=== PATIENT | female | born 1930 | race Caucasian/White ===

== ENCOUNTER 2016-03-21 18:14 | Inpatient (IN) | payer OTHER, MEDICARE ==
[~2016-03-21] VITALS: Ht 160 cm; Wt 51.0 kg
[~2016-03-21 18:14] MED LIST: TYLE3 PO; ZOCO40TA PO
[2016-03-21 18:22] VITALS: BP 126/58; PULSE 93; RESP 18; TEMP 98.1; O2SAT 99
[2016-03-21] MEDS ORDERED: ZOCO40TA PO (18:27)
--- NOTE | 2016-03-21 18:42 | PD ---
HPI . Weakness Chief Complaint: General Weakness Time Seen by Provider: 18:32 Travel History International Travel<30 days: No Contact w/Intl Traveler<30days: No Traveled to known affect area: No History of Present Illness HPI This patient is brought in via [facility] at the request of our department. Reportedly, the patient's neighbor tried to check on her today but did not get an answer. The neighbor subsequently contacted the fire department and requested a well-being check. The fire department went to check on her and she informed them that she had been fatigued since her in November. She keeps stating that "my mind is going". She has no other specific complaints. She admits to occasional headache which is not unusual for her. She denies chest pain or shortness of breath. She denies vomiting or diarrhea. She denies urinary tract symptoms. She denies any trauma. PFSH Past Medical History Cancer: Yes (L LUMPECTOMY "CANCER"-ON TAMOXIFEN X 5 YRS-RADIATION 1999) High Cholesterol: Yes Hypertension: Yes Radiation Therapy: Yes (1999-L LUMPECTOMY) Influenza Vaccination: Yes Menopausal: Yes Past Surgical History Mastectomy: Yes (LEFT LUMPECTOMY AND NODE REMOVAL, RADIATION) Other Surgery: Yes (L LUMPECTOMY "CANCER") Social History Alcohol Use: No Tobacco Use: No Substance Use: No Allergies-Medications (Allergen,Severity, Reaction): Coded Allergies: No Known Allergies (Verified , 03/21/16) Reported Meds & Prescriptions Reported Meds & Active Scripts Active Reported Zocor (Simvastatin) 40 Mg Tab 40 Mg PO HS Review of Systems Except as stated in HPI: all other systems reviewed are Neg General / Constitutional: No: Fever, Chills, Weight Loss Eyes: No: Blurred Vision HENT: Positive: Headaches, No: Lightheadedness, Sore Throat, Rhinitis, Rhinorrhea, Congestion Cardiovascular: No: Chest Pain or Discomfort Respiratory: No: Cough, Shortness of Breath Gastrointestinal: No: Nausea, Vomiting, Diarrhea, Abdominal Pain, Loss of Appetite Genitourinary: No: Urgency, Frequency, Dysuria Musculoskeletal: Positive: Weakness, No: Myalgias, Arthralgias, Pain Neurologic: Positive: Weakness, Change in Mentation (she states that "my memory is going."), No: Dizziness, Syncope, Focal Abnormalities Physical Exam Narrative GENERAL: This is a thin elderly woman who seems to become intermittently frustrated because she is unable to answer our questions. SKIN: Warm and dry. HEAD: Atraumatic. Normocephalic. EYES: Pupils equal and round. Extraocular movements are intact. ENT: No nasal bleeding or discharge. Mucous membranes pink and moist. NECK: Trachea midline. Neck is supple. There is no cervical lymphadenopathy. CARDIOVASCULAR: Regular rate and rhythm. Heart sounds are normal. RESPIRATORY: No accessory muscle use. Lungs are clear with full air movement throughout. GASTROINTESTINAL: Abdomen soft, non-tender, nondistended. MUSCULOSKELETAL: No obvious deformities. No edema. NEUROLOGICAL: Awake and alert. She knows her name and where she is. When prompted, she recalls that we've just celebrated Glennie and 's. No obvious cranial nerve deficits. Motor grossly within normal limits. Normal speech. PSYCHIATRIC: Appropriate mood and affect. Frustrated by her memory. Data Data Last Documented VS Vital Signs Date Time Temp Pulse Resp B/P Pulse Ox O2 Delivery O2 Flow Rate FiO2 03/21/16 18:22 98.1 93 18 126/58 99 MDM Medical Decision Making Medical Screen Exam Complete: Yes Emergency Medical Condition: Yes Differential Diagnosis Differential diagnosis of weakness includes but is not limited to infection, CVA , electrolyte disturbance, renal failure, hypoglycemia, UTI, ACS Narrative Course This patient presents basically with failure to thrive since her in November. I have ordered labs and a CT of her head. Her care will be checked out to the oncoming physician. Franci Jeter MD Mar 21, 2016 18:42
[2016-03-21] MEDS ORDERED: SODIUM CHLORIDE 0.9% FLUSH 5 ML FLUSH IVF PRN (18:45)
--- NOTE | 2016-03-21 19:05 | RADRPT ---
EXAM DATE/TIME: 03/21/2016 18:46 [facility] COMPARISON: No previous studies available for comparison. INDICATIONS : Syncope. MEDICAL HISTORY : None. SURGICAL HISTORY : None. ENCOUNTER: Initial ACUITY: 1 day PAIN SCORE: 0/10 LOCATION: Bilateral chest FINDINGS: A single view of the chest demonstrates the lungs to be symmetrically aerated without evidence of mas s, infiltrate or effusion. The cardiomediastinal contours are unremarkable. Osseous structures are intact. Left axillary and breast surgical clips noted. CONCLUSION: No evidence of acute cardiopulmonary disease. Carlos A Babcock MD on March 21, 2016 at 19:03 Board Certified Radiologist. This report was verified electronically.
--- NOTE | 2016-03-21 19:14 | PD ---
Physical Exam Narrative General: The patient is a well-developed well-nourished female in no acute distress. Head and Neck exam: Head is normocephalic atraumatic. Eyes: EOMI, pupils are equal round and reactive to light. Nose: Midline septum with pink mucous membranes Mouth: Dentition unremarkable. Moist mucus membranes. Posterior oropharynx is not erythematous. No tonsillar hypertrophy. Uvula midline. Airway patent. Neck: No palpable lymphadenopathy. No nuchal rigidity. No thyromegaly. Cardiovascular: Regular rate and rhythm without murmurs, gallops, or rubs. Lungs: Clear to auscultation bilaterally. No wheezes, rhonchi, or rales. Abdomen: Soft, without tenderness to palpation in all 4 quadrants of the abdomen. No guarding, rebound, or rigidity. Normal bowel sounds are audible. Extremities: No clubbing, cyanosis, or edema. 1+ pulses in bilateral lower extremities, 2+ pulses in bilateral upper extremities. Back: No spinous process tenderness to palpation. No costovertebral angle tenderness to palpation. Neurologic Exam: Cranial nerves 2-12 were intact on exam. Strength is 5/5 in all 4 extremities. No sensory deficits noted. The patient is oriented to person and place, however she has difficulty recalling timeframes and situation. She reports that she is unsure why she called ambulance services, however on further questioning she then recalls that her neighbor called when they were not able to get her to answer the door. Skin Exam: No rash noted. Intact skin that is warm and dry. Data Data Last Documented VS Vital Signs Date Time Temp Pulse Resp B/P Pulse Ox O2 Delivery O2 Flow Rate FiO2 03/21/16 22:29 90 15 118/58 96 Room Air 03/21/16 18:22 98.1 Orders Electrocardiogram (03/21/16 18:32) Complete Blood Count With Diff (03/21/16 18:32) Comprehensive Metabolic Panel (03/21/16 18:32) Troponin I (03/21/16 18:32) Thyroid Stimulating Hormone (03/21/16 18:32) Urinalysis - C+S If Indicated (03/21/16 18:32) Chest, Single Ap (03/21/16 18:32) Ct Brain W/O Iv Contrast(Rout) (03/21/16 18:32) Blood Glucose (03/21/16 18:32) Ecg Monitoring (03/21/16 18:32) Iv Access Insert/Monitor (03/21/16 18:32) Oximetry (03/21/16 18:32) Sodium Chloride 0.9% Flush (Ns Flush) (03/21/16 18:45) Cath For Specimen (03/21/16 20:28) Sodium Chlorid 0.9% 500 Ml Inj (Ns 500 M (03/21/16 20:30) Ondansetron Inj (Zofran Inj) (03/21/16 20:30) Urine Culture (03/21/16 21:15) Ceftriaxone Inj (Rocephin Inj) (03/21/16 22:15) Admit Order (Ed Use Only) (03/21/16 22:42) Labs Laboratory Tests Test 03/21/16 03/21/16 19:00 21:15 White Blood Count 14.6 TH/MM3 Red Blood Count 4.95 MIL/MM3 Hemoglobin 15.1 GM/DL Hematocrit 44.3 % Mean Corpuscular Volume 89.6 FL Mean Corpuscular Hemoglobin 30.5 PG Mean Corpuscular Hemoglobin 34.1 % Concent Red Cell Distribution Width 14.2 % Platelet Count 334 TH/MM3 Mean Platelet Volume 8.5 FL Neutrophils (%) (Auto) 88.8 % Lymphocytes (%) (Auto) 7.6 % Monocytes (%) (Auto) 3.1 % Eosinophils (%) (Auto) 0.2 % Basophils (%) (Auto) 0.3 % Neutrophils # (Auto) 13.0 TH/MM3 Lymphocytes # (Auto) 1.1 TH/MM3 Monocytes # (Auto) 0.5 TH/MM3 Eosinophils # (Auto) 0.0 TH/MM3 Basophils # (Auto) 0.0 TH/MM3 CBC Comment DIFF FINAL Differential Comment Sodium Level 140 MEQ/L Potassium Level 4.2 MEQ/L Chloride Level 106 MEQ/L Carbon Dioxide Level 22.9 MEQ/L Anion Gap 11 MEQ/L Blood Urea Nitrogen 12 MG/DL Creatinine 1.23 MG/DL Estimat Glomerular Filtration 41 ML/MIN Rate Random Glucose 150 MG/DL Calcium Level 8.9 MG/DL Total Bilirubin 0.7 MG/DL Aspartate Amino Transf 27 U/L (AST/SGOT) Alanine Aminotransferase 21 U/L (ALT/SGPT) Alkaline Phosphatase 96 U/L Troponin I LESS THAN 0.02 NG/ML Total Protein 7.2 GM/DL Albumin 3.3 GM/DL Thyroid Stimulating Hormone 2.380 uIU/ML 3rd Gen Urine Color DARK-YELLOW Urine Turbidity HAZY Urine pH 5.5 Urine Specific [place] 1.025 Urine Protein 100 mg/dL Urine Glucose (UA) TRACE mg/dL Urine Ketones NEG mg/dL Urine Occult Blood NEG Urine Nitrite NEG Urine Bilirubin NEG Urine Urobilinogen 2.0 MG/DL Urine Leukocyte Esterase NEG Urine RBC 1 /hpf Urine WBC 3 /hpf Urine Squamous Epithelial 1 /hpf Cells Urine Bacteria FEW /hpf Urine Hyaline Casts 14 /lpf Urine Mucus FEW /lpf Urine Yeast (Budding) OCC Microscopic Urinalysis Comment CATH-CULTURE IND MDM Medical Record Reviewed: Yes Supervised Visit with SUPRIYA: No Interpretation(s) Last Impressions Head CT 03/21/161831 Signed Impressions: Service Date/Time: Monday, March 21, 2016 19:16 - CONCLUSION: Negative noncontrast head CT. Carlos A Babcock MD Chest X-Ray 03/21/161831 Signed Impressions: Service Date/Time: Monday, March 21, 2016 18:46 - CONCLUSION: No evidence of acute cardiopulmonary disease. Carlos A Babcock MD Narrative Course During the course of the patients emergency department visit, the patients history, examination, and differential diagnosis were reviewed with the patient. The patient had IV access obtained and blood work sent for analysis. The patient's case was checked out to me by Dr. Jeter who requested that I review the patient's laboratory and imaging studies and disposition the patient. As the patient came in with generalized weakness and altered mentation that lives at home alone, she recommended that the patient be admitted for continued evaluation and treatment. The patient's EKG is remarkable for being a sinus rhythm with occasional premature supraventricular contractions, no ST segment elevation is noted. Nonspecific T-wave abnormalities are noted, heart rate of 88. The patient has a reported history of memory problems for the last several months. She reports that it is gotten much worse since her in November. She reports that she was for 58 years. She reports that she has no local family and lives alone. Her closest family member is a sister that lives in [place], [place]. She reports that she has discussed with her primary care physician her memory problems, however she denies any specific workup being done previously to evaluate this. The patient was provided normal saline a 500 mL bolus 1, Zofran 4 mg IV times one for nausea. The patients laboratory studies were reviewed and remarkable for a white count of 14.6, hemoglobin 15.1, platelets 334 with 88.8 neutrophils, lymphocytes 7.6, CMP is remarkable for creatinine of 1.23, glucose 150, troponin I less than 0.02 , albumin 3.3, TSH 2.38, catheterized urine shows 100 protein few bacteria few mucus occasional yeast culture indicated. Radiology studies were reviewed and remarkable for a chest x-ray that shows no acute abnormality. The patients results were discussed with the patient, including the plan of care. I explained that further testing and/ or monitoring is indicated based on the patients history, examination, and/ or laboratory findings. Therefore, I recommended admission for additional evaluation. The patient expressed understanding and was agreeable with this plan. The patient was admitted to the hospital in stable condition and sent to a bed under the care of the [facility] service. PCP Dr. Singh, Cici patient, the patient's case was discussed with Dr. Singh. He reports that his [facility] patients are admitted by the [facility] service. A call was placed out to the [facility] service for admission. Physician Communication Physician Communication The patient's case was discussed with Dr. Singh who reports that his [facility] patients are admitted to the [facility] service. The patient's case will be discussed with Dr. Brown. The patient's case was discussed with Dr. Brown and she did agree to admit the patient for further evaluation and treatment at this time Diagnosis Primary Impression: Generalized weakness Additional Impression: Bacteriuria Admitting Information Admitting Physician Requests: Observation Liseth Fonseca MD Mar 21, 2016 19:14
[2016-03-21 19:24] LABS: BASOPHIL % 0.3 % (0.0-2.0); EOSINOPHIL % 0.2 % (0.0-4.0); HEMATOCRIT 44.3 % (35.0-46.0); HEMO FLAGS DIFF FINAL; LYMPH % 7.6 % (9.0-44.0); LYMPHOCYTE # 1.1 TH/MM3 (1.0-4.8); MEAN CELL VOLUME 89.6 FL (80.0-100.0); MEAN CORPUSCULAR HEMOGLOBIN 30.5 PG (27.0-34.0); MEAN CORPUSCULAR HGB CONC 34.1 % (32.0-36.0); MONO % 3.1 % (0.0-8.0); NEUT % 88.8 % (16.0-70.0); PLATELET COUNT 334 TH/MM3 (150-450); RED BLOOD COUNT 4.95 MIL/MM3 (4.00-5.30); RED CELL DISTRIBUTION WIDTH 14.2 % (11.6-17.2); WHITE BLOOD COUNT 14.6 TH/MM3 (4.0-11.0)
[2016-03-21 19:47] LABS: ANION GAP 11 MEQ/L (5-15); AST (GOT) 27 U/L (15-37); BICARBONATE 22.9 MEQ/L (21.0-32.0); BLOOD UREA NITROGEN 12 MG/DL (7-18); CHLORIDE 106 MEQ/L (98-107); GLOMERULAR FILTRATION RATE 41 ML/MIN (>89); POTASSIUM 4.2 MEQ/L (3.5-5.1); SODIUM (NA) 140 MEQ/L (136-145)
--- NOTE | 2016-03-21 19:48 | RADRPT ---
EXAM DATE/TIME: 03/21/2016 19:16 [facility] COMPARISON: No previous studies available for comparison. INDICATIONS : Altered mental status; patient states she gets episodes of confusion over the past few months. RADIATION DOSE: 28.46 CTDIvol (mGy) MEDICAL HISTORY : Carcinoma, breast. Hypertension. SURGICAL HISTORY : None. ENCOUNTER: Initial ACUITY: 3 months PAIN SCALE: 0/10 LOCATION: cranial TECHNIQUE: Multiple contiguous axial images were obtained of the head. Using automated exposure control and adj ustment of the mA and/or kV according to patient size, radiation dose was kept as low as reasonably a chievable to obtain optimal diagnostic quality images. FINDINGS: CEREBRUM: The ventricles are normal for age. No evidence of midline shift, mass lesion, hemorrhage or acute in farction. No extra-axial fluid collections are seen. POSTERIOR FOSSA: The cerebellum and brainstem are intact. The 4th ventricle is midline. The cerebellopontine angle i s unremarkable. EXTRACRANIAL: The visualized portion of the orbits is intact. SKULL: The calvaria is intact. No evidence of skull fracture. CONCLUSION: Negative noncontrast head CT. Carlos A Babcock MD on March 21, 2016 at 19:46 Board Certified Radiologist. This report was verified electronically.
[2016-03-21 20:01] LABS: ALKALINE PHOSPHATASE 96 U/L (45-117); ALT (GPT) 21 U/L (10-53); TOTAL BILIRUBIN ADULT 0.7 MG/DL (0.2-1.0)
[2016-03-21] MEDS ORDERED: ONDANSETRON HCL 4 MG/2 ML VIAL IV ONE (20:30)
[2016-03-21] MEDS ORDERED: SODIUM CHLORID 0.9% 500 ML INJ 500 ML IV ONE (20:30)
[2016-03-21 21:41] LABS: BACTERIA, URINE FEW /hpf; BLOOD, URINE NEG (NEG); COMMENT (UR) CATH-CULTURE IND; CULTURE IF INDICATED CATH CULTURE IND; GLUCOSE,URINE TRACE mg/dL (NEG); HYALINE CAST, URINE 14 /lpf (RARE); KETONE, URINE NEG (NEG); MUCUS URINE FEW /lpf (OCC); NITRITE,URINE NEG (NEG); PH, URINE 5.5 (5.0-8.5); SQUAMOUS EPITHELIAL CELL URINE 1 /hpf (0-5); URINE COLOR DARK-YELLOW (YELLW/STRAW)
[2016-03-21] MEDS ORDERED: cefTRIAXone INJ 1,000 MG in SODIUM CHLORIDE 0.9% INJ 100 ML IV ONE (22:15)
[2016-03-21 22:29] VITALS: BP 118/58; PULSE 90; RESP 15; O2SAT 96
[2016-03-21] MEDS: SODIUM CHLOR 0.9% 1000 ML INJ 1,000 ML IV SCH (22:53)
--- NOTE | 2016-03-21 22:57 | HHI.HP ---
[facility] Mey Singh MD Admission Diagnosis Generalized weakness, Bactiuria Diagnoses: (1) Generalized weakness Diagnosis: Principal (2) Renal insufficiency Diagnosis: Principal (3) UTI (urinary tract infection) Diagnosis: Principal Travel History International Travel<30 Days: No Contact w/Intl Traveler <30 Da: No Traveled to Known Affected Are: No History of Present Illness This is an 86-year-old female with a PMH of HTN, Hyperlipidemia and Breast CA was brought to the ER by EMS secondary to weakness and unable to care for self. Per report, neighbors check on her regularly and noted her to be weaker than usual, unable to get her up. Of note, pt's recently in November and neighbors report steady decline in her condition. Patient without any complaints. On arrival, BP 126/58, HR 93, O2 sat 99% on RA, Afebrile. WBC 14.6. Creatinine 1.23, previously 0.67 on 05/05/10. UA with bacteriuria. S/p Rocephin IV. CT Head w/ no acute findings. CXR negative. Review of Systems Other ROS: 14 point review of systems otherwise negative. Past Family Social History Past Medical History PMH: HTN, Hyperlipidemia and Breast CA Past Surgical History PAST SURGICAL HISTORY: Left Lumpectomy Allergies: Coded Allergies: No Known Allergies (Verified , 03/21/16) Family History PAST FAMILY HISTORY: Reviewed. No h/o DM or CAD Social History PAST SOCIAL HISTORY: Negative for alcohol, tobacco or drugs. Physical Exam Vital Signs Vital Signs Date Time Temp Pulse Resp B/P Pulse Ox O2 Delivery O2 Flow Rate FiO2 03/21/16 22:29 90 15 118/58 96 Room Air 03/21/16 18:22 98.1 93 18 126/58 99 Physical Exam PE: GENERAL: Elderly female in no acute distress. HEENT: PERRLA, EOMI. No scleral icterus or conjunctival pallor. No lid lag or facial droop. CARDIOVASCULAR: Regular rate and rhythm. No obvious murmurs to auscultation. No chest tenderness to palpation. RESPIRATORY: No obvious rhonchi or wheezing. Clear to auscultation. Breath sounds equal bilaterally. GASTROINTESTINAL: Abdomen soft, non-tender, nondistended. BS normal. MUSCULOSKELETAL: Extremities without clubbing, cyanosis, or edema. No obvious deformities. NEUROLOGICAL: Awake, alert and oriented to person/place. No focal neurologic deficits. Moving both upper and lower extremities spontaneously. Laboratory Laboratory Tests Test 03/21/16 03/21/16 19:00 21:15 White Blood Count 14.6 Red Blood Count 4.95 Hemoglobin 15.1 Hematocrit 44.3 Mean Corpuscular Volume 89.6 Mean Corpuscular Hemoglobin 30.5 Mean Corpuscular Hemoglobin 34.1 Concent Red Cell Distribution Width 14.2 Platelet Count 334 Mean Platelet Volume 8.5 Neutrophils (%) (Auto) 88.8 Lymphocytes (%) (Auto) 7.6 Monocytes (%) (Auto) 3.1 Eosinophils (%) (Auto) 0.2 Basophils (%) (Auto) 0.3 Neutrophils # (Auto) 13.0 Lymphocytes # (Auto) 1.1 Monocytes # (Auto) 0.5 Eosinophils # (Auto) 0.0 Basophils # (Auto) 0.0 CBC Comment DIFF FINAL Differential Comment Sodium Level 140 Potassium Level 4.2 Chloride Level 106 Carbon Dioxide Level 22.9 Anion Gap 11 Blood Urea Nitrogen 12 Creatinine 1.23 Estimat Glomerular Filtration 41 Rate Random Glucose 150 Calcium Level 8.9 Total Bilirubin 0.7 Aspartate Amino Transf 27 (AST/SGOT) Alanine Aminotransferase 21 (ALT/SGPT) Alkaline Phosphatase 96 Troponin I LESS THAN 0.02 Total Protein 7.2 Albumin 3.3 Thyroid Stimulating Hormone 2.380 3rd Gen Urine Color DARK-YELLOW Urine Turbidity HAZY Urine pH 5.5 Urine Specific [place] 1.025 Urine Protein 100 Urine Glucose (UA) TRACE Urine Ketones NEG Urine Occult Blood NEG Urine Nitrite NEG Urine Bilirubin NEG Urine Urobilinogen 2.0 Urine Leukocyte Esterase NEG Urine RBC 1 Urine WBC 3 Urine Squamous Epithelial 1 Cells Urine Bacteria FEW Urine Hyaline Casts 14 Urine Mucus FEW Urine Yeast (Budding) OCC Microscopic Urinalysis Comment CATH-CULTURE IND Date/Time Procedure Status Source Growth 03/21/16 21:15 Urine Culture Received Urine Catheterized Urine Pending Result Diagram: 03/21/16189903/21/161899 Assessment and Plan Problem List: (1) Generalized weakness ICD Code: R53.1 Status: Acute (2) UTI (urinary tract infection) ICD Code: N39.0 Status: Acute (3) Renal insufficiency ICD Code: N28.9 Status: Acute Assessment and Plan A/P: 1. Generalized Weakness: secondary to physical deconditioning and compounded by UTI/Dehydration. IVF, PT for eval/tx. Case Management for assistance w/ placement as pt lives alone. CXR negative, CT Head w/ no acute findings, images reviewed by me. 2. UTI: U/a w/ bacteriuria. WBC 14.6. S/p IV Rocephin in ER, continue w/ IV Rocephin and IVF. 3. TRUNG: Creatinine 1.23, previously 0.67 on 04/25/10. IVF for hydration, repeat labs in am. 4. DVT Prophylaxis: SCD/Teds. 5. Social work for d/c planning as needed. 6. Case discussed w/ ER physician at length. Dora Brown MD Mar 21, 2016 22:57
[2016-03-21] MEDS ORDERED: SODIUM CHLORIDE 0.9% FLUSH 5 ML FLUSH FLUSH PRN (23:00)
[2016-03-21] MEDS ORDERED: ACETAMINOPHEN/HYDROcodone 325 MG/5 MG TAB PO PRN (23:00)
[2016-03-21] MEDS ORDERED: ONDANSETRON HCL 4 MG/2 ML VIAL IVP PRN (23:00)
[2016-03-21] MEDS ORDERED: BISACODYL 10 MG SUPP PR PRN (23:00)
[2016-03-21] MEDS ORDERED: ACETAMINOPHEN 325 MG TAB PO PRN (23:00)
[2016-03-22] VITALS (7 sets, daily range): BP systolic 104–151; BP diastolic 50–66; PULSE 79–93; RESP 12–20; TEMP 96.9–98.8; O2SAT 96–100
[2016-03-22 04:32] LABS: AUTOMATED NEUTROPHIL # 8.1 TH/MM3 (1.8-7.7); BASOPHIL % 0.1 % (0.0-2.0); EOSINOPHIL % 0.4 % (0.0-4.0); HEMATOCRIT 35.9 % (35.0-46.0); HEMO FLAGS DIFF FINAL; LYMPH % 15.1 % (9.0-44.0); LYMPHOCYTE # 1.6 TH/MM3 (1.0-4.8); MEAN CELL VOLUME 89.9 FL (80.0-100.0); MEAN CORPUSCULAR HEMOGLOBIN 30.8 PG (27.0-34.0); MEAN CORPUSCULAR HGB CONC 34.3 % (32.0-36.0); MONO % 8.3 % (0.0-8.0); NEUT % 76.1 % (16.0-70.0); PLATELET COUNT 274 TH/MM3 (150-450); RED BLOOD COUNT 3.99 MIL/MM3 (4.00-5.30); RED CELL DISTRIBUTION WIDTH 13.7 % (11.6-17.2); WHITE BLOOD COUNT 10.7 TH/MM3 (4.0-11.0)
[2016-03-22 05:11] LABS: ALKALINE PHOSPHATASE 88 U/L (45-117); ALT (GPT) 15 U/L (10-53); ANION GAP 10 MEQ/L (5-15); AST (GOT) 16 U/L (15-37); BICARBONATE 23.4 MEQ/L (21.0-32.0); BLOOD UREA NITROGEN 18 MG/DL (7-18); CHLORIDE 110 MEQ/L (98-107); GLOMERULAR FILTRATION RATE 33 ML/MIN (>89); POTASSIUM 4.2 MEQ/L (3.5-5.1); SODIUM (NA) 143 MEQ/L (136-145); TOTAL BILIRUBIN ADULT 0.3 MG/DL (0.2-1.0)
[2016-03-22] MEDS: SODIUM CHLORIDE 0.9% FLUSH 5 ML FLUSH FLUSH SCH ×2 (09:47→19:54)
[2016-03-22] MEDS: SODIUM CHLOR 0.9% 1000 ML INJ 1,000 ML IV SCH ×2 (09:48→23:46)
--- NOTE | 2016-03-22 10:28 | HHI.PR ---
Subjective Remarks Follow-up for FTT. The patient is to be confused and has a hard time remembering what brought her to the hospital. She states that she has a history of memory problems. She is not oriented to time. She does live alone since her a few months ago. She has a younger sister in [place]. She is not sure if she fell or not, denies any pain. He states that she has a history of getting lightheaded sometimes, but doesn't think she' s been lightheaded recently. She denies any nausea, vomiting, fever, chills, paresthesias, dysuria, positive patient. She states she is on medication for blood pressure and cholesterol at home. 1040 discussed with family at bedside. Reportedly the patient went to the hospital yesterday because she was having profuse diarrhea. Patient denies any further diarrhea overnight. They do stay the patient was started on donepezil recently and are wondering if that is contributing. Patient's mental status is currently at baseline. Currently they're transitioning the patient to be independent living near family in [place]. Objective Vitals Vital Signs Date Time Temp Pulse Resp B/P Pulse Ox O2 Delivery O2 Flow Rate FiO2 03/22/16 07:03 97.2 83 20 104/50 97 03/22/16 03:33 98.2 87 16 116/55 97 03/22/16 01:31 97.8 93 16 126/53 100 03/21/16 22:29 90 15 118/58 96 Room Air 03/21/16 18:22 98.1 93 18 126/58 99 I/O 03/21/16 03/21/16 03/21/16 03/22/16 03/22/16 03/22/16 07:00 15:00 23:00 07:00 15:00 23:00 Intake Total 566 ml Balance 566 ml Intake Oral 120 ml IV Total 446 ml Result Diagram: 03/22/16 0355 03/22/16 0355 Imaging Last Impressions Head CT 03/21/161831 Signed Impressions: Service Date/Time: Monday, March 21, 2016 19:16 - CONCLUSION: Negative noncontrast head CT. Carlos A Babcock MD Chest X-Ray 03/21/161831 Signed Impressions: Service Date/Time: Monday, March 21, 2016 18:46 - CONCLUSION: No evidence of acute cardiopulmonary disease. Carlos A Babcock MD Objective Remarks GENERAL: Well-developed well-nourished. In no acute distress. SKIN: Warm and dry. No lesions noted. HEENT: Normocephalic. Pupils equal and round. Mucous membranes pink and moist. CARDIOVASCULAR: Regular rate and rhythm. No murmur appreciated. RESPIRATORY: No accessory muscle use. Clear to auscultation. Breath sounds equal bilaterally. GASTROINTESTINAL: Abdomen soft, non-tender, nondistended. Bowel sounds x4. MUSCULOSKELETAL: No obvious deformities. No clubbing or cyanosis. No edema. NEUROLOGICAL: Awake and alert. Not oriented to time. No focal neurological deficits. Moves upper and lower extremities spontaneously. Normal speech. PSYCHIATRIC: Pleasantly confused mood and affect; insight and judgment fair to poor. A/P Problem List: (1) Generalized weakness ICD Code: R53.1 Status: Acute (2) UTI (urinary tract infection) ICD Code: N39.0 Status: Acute (3) Renal insufficiency ICD Code: N28.9 Status: Acute Assessment and Plan 86-year-old female with a PMH of HTN, Hyperlipidemia and Breast CA who is brought in by EMS reportedly after her neighbors called because she appeared weaker than normal Failure to thrive: Secondary to chronic memory loss with possible depression component as well. Also possibility of dehydration and UTI. PT consulted, recommends C, however the patient needs supervision at home. UTI: UA with evidence of possible infection. On IV Rocephin empirically pending urine culture. Acute kidney injury: Creatinine 1.23, previously 0.67 on 04/25/10. Secondary to recent diarrhea? Creatinine increased to 1.48 overnight while on IVF. Check renal ultrasound to rule out obstruction. Continue IVF and follow-up BMP. Chronic memory loss: Per patient. TSH within normal limits. Check B12 and RPR. Possible GI upset on Aricept. Start Namenda. DVT prophylaxis: SCDs Written by Uday Bui, acting as scribe for Dr. Mas on 03/22/16 at 10:20. Discharge Planning Case management consulted for assistance with discharge disposition. Attending Statement The documentation accurately reflects the work performed [id number] by me on at 10:20. Problem Qualifiers (1) UTI (urinary tract infection): Qualified Code: N39.0 - Urinary tract infection without hematuria, site unspecified Uday Bui Mar 22, 2016 10:28 Kranthi Mas MD Mar 23, 2016 11:30
[2016-03-22] MEDS ORDERED: LISI10TA3 PO (10:30)
[2016-03-22] MEDS: MEMANTINE HCL 5 MG TAB PO SCH (11:50)
--- NOTE | 2016-03-22 12:27 | RADRPT ---
EXAM DATE/TIME: 03/22/2016 11:14 [facility] COMPARISON: No previous studies available for comparison. INDICATIONS : Increased BUN/Creatine. MEDICAL HISTORY : Hypercholesterolemia. Hypertension. Left breast cancer. Depression. SURGICAL HISTORY : Left lumpectomy with removal of nodules. Right hip replacement. ENCOUNTER: Initial ACUITY: 1 day PAIN SCORE: 0/10 LOCATION: Bilateral flank MEASUREMENTS: RIGHT KIDNEY: 10.7 x 4.4 x 4.2 cm LEFT KIDNEY: 10.3 x 4.5 x 5.6 cm FINDINGS: RIGHT KIDNEY: Renal cortex is normal in thickness and increased in echotexture. No hydronephrosis, stone, or mass. LEFT KIDNEY: Renal cortex is normal in thickness and increased in echotexture. No hydronephrosis, stone, or mass. BLADDER: Within normal limits given the degree of distension. CONCLUSION: 1. Trace perinephric fluid on the right than small amount of free fluid in the right lower quadrant a nd midline pelvis. 2. Mild increased echotexture of the kidneys bilaterally. Gavin Vidal MD on March 22, 2016 at 12:24 Board Certified Radiologist. This report was verified electronically.
[2016-03-22 12:54] LABS: BICARBONATE 23.5 MEQ/L (21.0-32.0); POTASSIUM 3.8 MEQ/L (3.5-5.1)
[2016-03-22] MEDS ORDERED: ASPI325T PO (17:28)
[2016-03-22] MEDS ORDERED: NEOM0.1O4 LEFT EYE (17:28)
--- NOTE | 2016-03-22 18:26 | EKG ---
Date Performed: 03/21/2016 Time Performed: 18:57:26 PTAGE: 86 years EKG: Sinus rhythm WITH OCCASIONAL SUPRAVENTRICULAR PREMATURE COMPLEXES MODERATE T-WAVE ABNORMALITY, CONSIDER LATERAL I SCHEMIA Since previous tracing, no significant change noted ABNORMAL ECG PREVIOUS TRACING : 09/15/2009 11.04 DOCTOR: Linda Taveras Interpretating Date/Time 03/22/2016 18:24:31
[2016-03-22] MEDS ORDERED: cefTRIAXone INJ 1,000 MG in SODIUM CHLORIDE 0.9% INJ 100 ML IV SCH (23:00)
[2016-03-23] VITALS: BP 134/68; PULSE 78; RESP 20; TEMP 97.6; O2SAT 96
[2016-03-23 08:00] VITALS: BP 142/64; PULSE 76; RESP 18; TEMP 97.1; O2SAT 95
[2016-03-23] MEDS: MEMANTINE HCL 5 MG TAB PO SCH (10:24)
--- NOTE | 2016-03-23 11:41 | HHI.PR ---
Subjective Remarks Patient sitting up in chair at bedside.Patient says she feels great. No diarrhea. No chest pain or shortness of breath. No fevers or chills. No dysuria. She thinks she was dehydrated from the diarrhea. Daughter is at bedside, says patient is back to baseline, is comfortable with taking her home. They plan to move up to [place] soon to be near family. Daughter thinks that diarrhea may be secondary to starting donepezil recently. Objective Vital Signs Date Time Temp Pulse Resp B/P Pulse Ox O2 Delivery O2 Flow Rate FiO2 03/23/16 08:00 97.1 76 18 142/64 95 03/23/16 00:00 97.6 78 20 134/68 96 03/22/16 20:00 98.8 80 20 132/63 97 03/22/16 16:59 96.9 91 17 151/66 98 03/22/16 16:00 98.0 79 20 128/61 96 03/22/16 13:30 97.9 86 12 133/61 99 I/O 03/22/16 03/22/16 03/22/16 03/23/16 03/23/16 03/23/16 07:00 15:00 23:00 07:00 15:00 23:00 Intake Total 566 ml 480 ml 220 ml 876 ml Output Total 550 ml 500 ml Balance 566 ml -70 ml -280 ml 876 ml Intake Oral 120 ml 480 ml 220 ml IV Total 446 ml 876 ml Output Urine Total 550 ml 500 ml # Bowel Movements 0 0 Result Diagram: 03/22/16 0355 03/22/16 1200 Objective Remarks GENERAL: Patient sitting up in chair at bedside. Appears comfortable. Smiling. She is alert, oriented to location, not to year. Daughter says this is baseline. SKIN: Warm and dry. HEAD: Normocephalic. EYES: No scleral icterus. No injection or drainage. NECK: Supple, trachea midline. No JVD. CARDIOVASCULAR: Regular rate and rhythm without murmurs, gallops, or rubs. RESPIRATORY: Breath sounds equal bilaterally. No accessory muscle use. GASTROINTESTINAL: Abdomen soft, non-tender, nondistended. Positive bowel sounds. MUSCULOSKELETAL: No cyanosis, or edema. BACK: Nontender without obvious deformity. No CVA tenderness. A/P Assessment and Plan 86-year-old female with a PMH of HTN, Hyperlipidemia and Breast CA who is brought in by EMS reportedly after her neighbors called because she appeared weaker than normal. //Failure to thrive: Secondary to chronic memory loss with possible depression component as well. Also possibility of dehydration and UTI. PT consulted, recommends [facility], however the patient needs supervision at home. Daughter assures us that patient will be supervised. //Recent bout of diarrhea. Possibly secondary to donepezil versus infectious diarrhea. Appears to have resolved with no more episodes of diarrhea. -We will give course of antibiotics for colitis, as patient did improve on ceftriaxone here. Start on florastor. //Renal ultrasound with finding trace ascites. This could be secondary to recent infectious colitis. LFTs normal. Follow-up with primary care. //Possible UTI: UA with evidence of possible infection. -No growth on culture. Likely asymptomatic bacteriuria. //Acute kidney injury: Creatinine 1.23, previously 0.67 on 04/25/10. Secondary to recent diarrhea? Creatinine increased to 1.48 overnight while on IVF. -No obstruction on ultrasound. -Groomed with IV fluids. Drinking well. No more diarrhea. //Chronic memory loss: Per patient. TSH within normal limits. Check B12 and RPR. Possible GI upset on Aricept. -1/2 Start Namenda. 03/23. Tolerating Namenda well. DVT prophylaxis: SCDs Discharge Planning His charge home today with home health. Daughter this patient is back to baseline. Kranthi Mas MD Mar 23, 2016 11:41
[2016-03-23] MEDS ORDERED: CIPR-9 PO (11:44)
[2016-03-23] MEDS ORDERED: NAME5TAB2 PO (11:44)
[2016-03-23] MEDS ORDERED: FLOR250C PO (11:45)
--- NOTE | 2016-03-23 11:45 | HHI.FF ---
Face to Face Verification Diagnosis: (1) Generalized weakness Physical Therapy Order: Evaluate and Treat Home Health Nursing Order: Nursing assessment with vital signs I have seen patient Klarissa Heart on 03/23/16. My clinical findings support the need for the requested home health care services because: Deconditioned w/ increased weakness I certify that my clinical findings support that this patient is homebound because: Unsafe to leave home unassisted Kranthi Mas MD Mar 23, 2016 11:45
[2016-03-23] MEDS ORDERED: METR500T10 PO (11:49)
--- NOTE | 2016-03-23 12:06 | HHI.DS ---
cc: Mey Singh MD Discharge Summary Admission Date Mar 21, 2016 at 22:48 Discharge Date: Mar 23, 2016 Admitting Diagnosis Generalized weakness, Bactiuria (1) Generalized weakness ICD Code: R53.1 (2) UTI (urinary tract infection) ICD Code: N39.0 (3) Renal insufficiency ICD Code: N28.9 Procedures No invasive procedures. Brief History - From Admission This is an 86-year-old female with a PMH of HTN, Hyperlipidemia and Breast CA was brought to the ER by EMS secondary to weakness and unable to care for self. Per report, neighbors check on her regularly and noted her to be weaker than usual, unable to get her up. Of note, pt's recently in November and neighbors report steady decline in her condition. Patient without any complaints. On arrival, BP 126/58, HR 93, O2 sat 99% on RA, Afebrile. WBC 14.6. Creatinine 1.23, previously 0.67 on 05/05/10. UA with bacteriuria. S/p Rocephin IV. CT Head w/ no acute findings. CXR negative. CBC/BMP: 03/22/16 0355 03/22/16 1200 Significant Findings Laboratory Tests Test 03/21/16 03/21/16 03/22/16 03/22/16 19:00 21:15 03:55 12:00 White Blood Count 14.6 TH/MM3 (4.0-11.0) Neutrophils (%) (Auto) 88.8 % 76.1 % (16.0-70.0) (16.0-70.0) Lymphocytes (%) (Auto) 7.6 % (9.0-44.0) Neutrophils # (Auto) 13.0 TH/MM3 8.1 TH/MM3 (1.8-7.7) (1.8-7.7) Creatinine 1.23 MG/DL 1.48 MG/DL 1.13 MG/DL (0.50-1.00) (0.50-1.00) (0.50-1.00) Estimat Glomerular Filtration 41 ML/MIN (>89) 33 ML/MIN (>89) 46 ML/MIN (>89) Rate Random Glucose 150 MG/DL (74-106) Troponin I LESS THAN 0.02 NG/ML (0.02-0.05) Albumin 3.3 GM/DL 2.6 GM/DL (3.4-5.0) (3.4-5.0) Urine Color DARK-YELLOW (YELLW/STRAW) Urine Turbidity HAZY (CLEAR) Urine Protein 100 mg/dL (NEG-TRACE) Urine Bacteria FEW /hpf (NONE) Urine Mucus FEW /lpf (OCC) Urine Yeast (Budding) OCC (NONE) Red Blood Count 3.99 MIL/MM3 (4.00-5.30) Monocytes (%) (Auto) 8.3 % (0.0-8.0) Chloride Level 110 MEQ/L 112 MEQ/L (98-107) (98-107) Calcium Level 8.2 MG/DL 8.2 MG/DL (8.5-10.1) (8.5-10.1) Total Protein 5.5 GM/DL (6.4-8.2) Blood Urea Nitrogen 19 MG/DL (7-18) Imaging Last Impressions Renal Ultrasound 03/22/16 0000 Signed Impressions: Service Date/Time: Tuesday, March 22, 2016 11:14 - CONCLUSION: 1. Trace perinephric fluid on the right than small amount of free fluid in the right lower quadrant and midline pelvis. 2. Mild increased echotexture of the kidneys bilaterally. Gavin Vidal MD Head CT 03/21/161831 Signed Impressions: Service Date/Time: Monday, March 21, 2016 19:16 - CONCLUSION: Negative noncontrast head CT. Carlos A Babcock MD Chest X-Ray 03/21/161831 Signed Impressions: Service Date/Time: Monday, March 21, 2016 18:46 - CONCLUSION: No evidence of acute cardiopulmonary disease. Carlos A Babcock MD PE at Discharge GENERAL: Well-developed well-nourished. In no acute distress. SKIN: Warm and dry. No lesions noted. HEENT: Normocephalic. Pupils equal and round. Mucous membranes pink and moist. CARDIOVASCULAR: Regular rate and rhythm. No murmur appreciated. RESPIRATORY: No accessory muscle use. Clear to auscultation. Breath sounds equal bilaterally. GASTROINTESTINAL: Abdomen soft, non-tender, nondistended. Bowel sounds x4. MUSCULOSKELETAL: No obvious deformities. No clubbing or cyanosis. No edema. NEUROLOGICAL: Awake and alert. Not oriented to time. No focal neurological deficits. Moves upper and lower extremities spontaneously. Normal speech. PSYCHIATRIC: Pleasantly confused mood and affect; insight and judgment fair to poor. Hospital Course 86-year-old female with a PMH of HTN, Hyperlipidemia and Breast CA who is brought in by EMS reportedly after her neighbors called because she appeared weaker than normal. Patient found to be slightly tachycardic with heart rate in the 90s, as blood cell count 14. Creatinine 1.2 on admission, up to 1.5, down to 1.1) discharge. Most recent baseline creatinine 0.7 in 2010. Urinalysis showed bacteria but 1 white blood cell, chest x-ray negative. Urine culture was nevertheless resulted for presence of bacteria. She was started on ceftriaxone, IV fluids. Diarrhea resolved and had no bowel movements during admission. Greatly improved, and as per daughter was back to baseline. Patient had been recently started on donepezil. This was stopped, and patient was started on amantadine. She tolerated this without any issues. She'll be discharged home on a 10 day course of antibiotics for infectious colitis. Blood pressure was stable off of any blood pressure medications, and so we will Continue to hold lisinopril at discharge. //Failure to thrive: Secondary to chronic memory loss with possible depression component as well. Also possibility of dehydration and UTI. PT consulted, recommends [facility], however the patient needs supervision at home. Daughter assures us that patient will be supervised. //Recent bout of diarrhea. Possibly secondary to donepezil versus infectious diarrhea. Appears to have resolved with no more episodes of diarrhea. Start on florastor. //Renal ultrasound with finding trace ascites. This could be secondary to recent infectious colitis. LFTs normal. Follow-up with primary care. //Possible UTI: UA with evidence of possible infection. -No growth on culture. Likely asymptomatic bacteriuria. //Acute kidney injury: Creatinine 1.23, previously 0.67 on 04/25/10. Secondary to recent diarrhea? Creatinine increased to 1.48 overnight while on IVF. -No obstruction on ultrasound. -Groomed with IV fluids. Drinking well. No more diarrhea. Chronic memory loss: Per patient. TSH within normal limits. Check B12 and RPR. Possible GI upset on Aricept. -03/22 Start Namenda. 03/23. Tolerating Namenda well. DVT prophylaxis: SCDs Pt Condition on Discharge: Good Discharge Disposition: Disch w/ Home Health Serv Discharge Time: <= 30 minutes Discharge Instructions DIET: Follow Instructions for: As Tolerated, No Restrictions Activities you can perform: Regular-No Restrictions Follow up Referrals: PCP Follow-up - 1 Week with Mey Singh MD New Medications: Ciprofloxacin (Cipro) 500 Mg Tab 500 MG PO BID Infection Days 10 Ref 0 TAB Metronidazole (Metronidazole) 500 Mg Tab 500 MG PO BID To negate bad taste, cover with vegetable oil or butter prior to ingesting. Infection Days 10 Ref 0 TAB Saccharomyces Boulardii (Florastor) 250 Mg Cap 250 MG PO BID Nutritional Supplement Days 30 Ref 0 CAP Memantine (Namenda) 5 Mg Tab 5 MG PO DAILY Dementia Days 30 TAB Continued Medications: Aspirin (Aspirin) 325 Mg Tab 325 MG PO DAILY #30 Ref 0 TAB Qapeiqjn-Hdkptnftr-Mzonunrfptclr Opth Oint (Sjohqopx-Jijpgaexl-Hlekynhlwkpmn Opth Oint) 3.5 Gm Oint 1 APPLIC LEFT EYE BID Infection #3.5 Ref 0 GM Simvastatin (Zocor) 40 Mg Tab 40 MG PO HS Cholesterol Management #30 Ref 0 TAB Discontinued Medications: Lisinopril (Lisinopril) 10 Mg Tab 10 MG PO DAILY #30 Ref 0 TAB Kranthi Mas MD Mar 23, 2016 12:06
== END 2016-03-23 13:18 | disposition home health service (06) | DRG 392 ==
LOC: NEPE 18:14 → NEDA 22:45 → UNDOADMOB 22:48 → NEDA 22:48 → OBSVTOIN 03-22 00:04 → NEDA 03-22 01:16 → NEPGCP 03-22 01:16 → N07A 03-22 16:25 → NEPGCP 03-22 16:25 → UNDODISOB 03-23 13:18
PROVIDERS: ADMIT Internal Medicine; ATTEND Internal Medicine
DX: A09 Infectious gastroenteritis and colitis, unspecified (principal); N17.9 Acute kidney failure, unspecified; R82.71 Bacteriuria; R62.7 Adult failure to thrive; E86.0 Dehydration; E78.00 Pure hypercholesterolemia, unspecified; I10 Essential (primary) hypertension; E78.5 Hyperlipidemia, unspecified; R41.3 Other amnesia; Z92.3 Personal history of irradiation; Z85.3 Personal history of malignant neoplasm of breast
CPT/HCPCS: 70450; 71010; 76775; 80048; 80053; 81001; 82607; 84443; 84484; 85025; 86592; 87086; 93005; 96361; 96365; 96375; G0378; G8987-GP; G8988-GP; J0696; J2405; J7030; J7040; P9612